=== PATIENT | male | born 1945 | race Caucasian/White ===

== ENCOUNTER 2020-10-13 11:38 | Emergency (ER) | payer OTHER ==
[~2020-10-13] VITALS: Ht 170.2 cm; Wt 83.9 kg
[~2020-10-13 11:38] MED LIST: CEPH500 PO
[2020-10-13] MEDS ORDERED: Prednisone20 MG PO (12:57)
== END 2020-10-13 13:01 | disposition home or self-care (01) ==
LOC: ER 11:38
DX: L23.7 Allergic contact dermatitis due to plants, except food (principal)
CPT/HCPCS: 99282; J7512